=== PATIENT | male | born 1965 | race African-American/Black ===

== ENCOUNTER 2019-04-10 18:07 | Emergency (ER) | payer OTHER ==
[2019-04-10 19:01] VITALS: RESP 18
[2019-04-10] MEDS ORDERED: ACETAMINOPHEN TAB 325 MG TAB PO STA (19:13)
[2019-04-10] MEDS ORDERED: KETOROLAC 30 MG/ML 1 ML VIAL IVP STA (19:13)
[2019-04-10] MEDS: SODIUM CHLORIDE 0.9% 500 ML 500 ML IV SCH (19:27)
--- NOTE | 2019-04-10 19:31 | ED ---
General Adult HPI - General Source: patient, RN notes reviewed Mode of arrival: ambulatory Limitations: no limitations <Shailesh Hwang - Last Filed: 04/10/19 21:15> <Raciel Danielson - Last Filed: 04/10/19 21:22> - General Chief complaint: ENT Stated complaint: POSS STREP Time Seen by Provider: 04/10/19 18:56 - History of Present Illness Initial comments: 54-year-old male presents to the emergency determine for a chief Complaint of sore throat. Patient states he has had a sore throat for about 2 days. Feels like he has a lump in the back of his throat when he swallows. States it is very painful to swallow but denies difficulty swallowing. States he is had chills and felt feverish. States he was seen at [facility] prior to this and strep test was negative. However patient states he feels that he needs antibiotics.Patient has no other complaints at this time including shortness of breath, chest pain, abdominal pain, nausea or vomiting, headache, or visual changes. (Shailesh Hwang) - Related Data Previous Rx's Medication Instructions Recorded Clindamycin HCl 300 mg PO Q6HR #40 cap 12/18/15 Hydrocodone/Acetaminophen [Mcewen 1 tab PO Q6HR PRN #20 tab 12/18/15 5-325] Clindamycin [Cleocin] 450 mg PO Q8H 10 Days #90 capsule 04/10/19 Allergies Allergy/AdvReac Type Severity Reaction Status Date / Time Penicillins Allergy Swelling Verified 04/10/19 19:01 Review of Systems ROS Other: All systems not noted in ROS Statement are negative. <Shailesh Hwang - Last Filed: 04/10/19 21:15> ROS Other: All systems not noted in ROS Statement are negative. <Raciel Danielson - Last Filed: 04/10/19 21:22> ROS Statement: Those systems with pertinent positive or pertinent negative responses have been documented in the HPI. Past Medical History Past Medical History: No Reported History History of Any Multi-Drug Resistant Organisms: None Reported Past Surgical History: No Surgical Hx Reported Past Psychological History: No Psychological Hx Reported Smoking Status: Current every day smoker Past Alcohol Use History: None Reported Past Drug Use History: None Reported <Shailesh Hwang - Last Filed: 04/10/19 21:15> General Exam Limitations: no limitations General appearance: alert, in no apparent distress Head exam: Present: atraumatic, normocephalic, normal inspection Eye exam: Present: normal appearance, PERRL, EOMI. Absent: scleral icterus, conjunctival injection, periorbital swelling ENT exam: Present: mucous membranes moist, TM's normal bilaterally, normal external ear exam. Absent: normal exam, normal oropharynx (Uvula is deviated to the left, right soft palate is depressed) Neck exam: Present: normal inspection, full ROM. Absent: tenderness, meningismus, lymphadenopathy Respiratory exam: Present: normal lung sounds bilaterally. Absent: respiratory distress, wheezes, rales, rhonchi, stridor Cardiovascular Exam: Present: regular rate, normal rhythm, normal heart sounds. Absent: systolic murmur, diastolic murmur, rubs, gallop, clicks GI/Abdominal exam: Present: soft, normal bowel sounds. Absent: distended, tenderness, guarding, rebound, rigid Neurological exam: Present: alert <Shailesh Hwang P - Last Filed: 04/10/19 21:15> Course Vital Signs 04/10/19 18:59 Temperature 100.5 F H Pulse Rate 85 Respiratory 18 Rate Blood Pressure 154/96 O2 Sat by Pulse 98 Oximetry Medical Decision Making - Lab Data Result diagrams: 04/10/19 19:20 04/10/19 19:20 <Shailesh Hwang - Last Filed: 04/10/19 21:15> - Lab Data Result diagrams: 04/10/19 19:20 04/10/19 19:20 <Raciel Danielson - Last Filed: 04/10/19 21:22> - Medical Decision Making Vital decision making; this is a 54-year-old male complaint of sore throat for several days. Today the low-grade temperature. Examination of the throat finds mildly enlarged area of the right tonsil. He is able to breathe without strido r. Complains discomfort with swallowing. The tissue is not hot or red or inflamed. No anterior cervical lymphadenopathy. No headache no stiff neck. No other complaints. The patient had a CAT scan of the neck and the radiologist reported mild swelling of the right and left tonsil. No evidence of any fluid that could be aspirated. Patient has ALLERGIES to penicillin. He will be treated with clindamycin. The patient was advised to return emergency room as needed. He will be referred on to on-call ENT, Dr. Jones. Dr. Danielson (Raciel Danielson) - Lab Data Lab Results 04/10/19 04/10/19 04/10/19 Range/Units 19:20 19:20 19:20 WBC 13.0 H (3.8-10.6) k/uL RBC 4.69 (4.30-5.90) m/uL Hgb 15.3 (13.0-17.5) gm/dL Hct 43.7 (39.0-53.0) % MCV 93.1 (80.0-100.0) fL MCH 32.6 (25.0-35.0) pg MCHC 35.1 (31.0-37.0) g/dL RDW 13.2 (11.5-15.5) % Plt Count 214 (150-450) k/uL Neutrophils % 75 % Lymphocytes % 14 % Monocytes % 7 % Eosinophils % 2 % Basophils % 1 % Neutrophils # 9.7 H (1.3-7.7) k/uL Lymphocytes # 1.8 (1.0-4.8) k/uL Monocytes # 0.9 (0-1.0) k/uL Eosinophils # 0.2 (0-0.7) k/uL Basophils # 0.2 (0-0.2) k/uL Sodium 139 (137-145) mmol/L Potassium 4.9 (3.5-5.1) mmol/L Chloride 106 (98-107) mmol/L Carbon Dioxide 23 (22-30) mmol/L Anion Gap 10 mmol/L BUN 12 (9-20) mg/dL Creatinine 1.01 (0.66-1.25) mg/dL Est GFR (CKD-EPI)AfAm >90 (>60 ml/min/1.73 sqM) Est GFR (CKD-EPI)NonAf 85 (>60 ml/min/1.73 sqM) Glucose 97 (74-99) mg/dL Plasma Lactic Acid Jefe 1.8 (0.7-2.0) mmol/L Calcium 9.7 (8.4-10.2) mg/dL Total Bilirubin 0.6 (0.2-1.3) mg/dL AST 23 (17-59) U/L ALT 19 L (21-72) U/L Alkaline Phosphatase 91 (38-126) U/L Total Protein 7.6 (6.3-8.2) g/dL Albumin 4.2 (3.5-5.0) g/dL Heterophile Antibody (Negative) Group A Strep Rapid (Negative) 04/10/19 04/10/19 Range/Units 19:20 19:24 WBC (3.8-10.6) k/uL RBC (4.30-5.90) m/uL Hgb (13.0-17.5) gm/dL Hct (39.0-53.0) % MCV (80.0-100.0) fL MCH (25.0-35.0) pg MCHC (31.0-37.0) g/dL RDW (11.5-15.5) % Plt Count (150-450) k/uL Neutrophils % % Lymphocytes % % Monocytes % % Eosinophils % % Basophils % % Neutrophils # (1.3-7.7) k/uL Lymphocytes # (1.0-4.8) k/uL Monocytes # (0-1.0) k/uL Eosinophils # (0-0.7) k/uL Basophils # (0-0.2) k/uL Sodium (137-145) mmol/L Potassium (3.5-5.1) mmol/L Chloride (98-107) mmol/L Carbon Dioxide (22-30) mmol/L Anion Gap mmol/L BUN (9-20) mg/dL Creatinine (0.66-1.25) mg/dL Est GFR (CKD-EPI)AfAm (>60 ml/min/1.73 sqM) Est GFR (CKD-EPI)NonAf (>60 ml/min/1.73 sqM) Glucose (74-99) mg/dL Plasma Lactic Acid Jefe (0.7-2.0) mmol/L Calcium (8.4-10.2) mg/dL Total Bilirubin (0.2-1.3) mg/dL AST (17-59) U/L ALT (21-72) U/L Alkaline Phosphatase (38-126) U/L Total Protein (6.3-8.2) g/dL Albumin (3.5-5.0) g/dL Heterophile Antibody Negative (Negative) Group A Strep Rapid Negative (Negative) Disposition Is patient prescribed a controlled substance at d/c from ED?: No Time of Disposition: 21:15 <Shailesh Hwang - Last Filed: 04/10/19 21:15> <Raciel Danielson - Last Filed: 04/10/19 21:22> Clinical Impression: Tonsillitis, Phlegmon Disposition: HOME SELF-CARE Condition: Good Instructions (If sedation given, give patient instructions): Tonsillitis (ED) Additional Instructions: Please take Motrin and Tylenol for pain. Take antibiotic as directed. Follow- up with ENT in 1-2 days. Return to the emergency department if you have any w orsening symptoms such as are unable to swallow liquids or handle secretions. Prescriptions: Clindamycin [Cleocin] 450 mg PO Q8H 10 Days #90 capsule Referrals: Brenton Benson MD [REFERRING] - 1-2 days Dmitri Jones MD [STAFF PHYSICIAN] - 1-2 days
[2019-04-10 19:47] LABS: Basophils # (A) 0.2 k/uL (0-0.2); Basophils % (A) 1 %; Eosinophils # (A) 0.2 k/uL (0-0.7); Eosinophils % (A) 2 %; HCT 43.7 % (39.0-53.0); HGB 15.3 gm/dL (13.0-17.5); Lymphocytes # (A) 1.8 k/uL (1.0-4.8); Lymphocytes % (A) 14 %; MCH 32.6 pg (25.0-35.0); MCHC 35.1 g/dL (31.0-37.0); MCV 93.1 fL (80.0-100.0); Mean Platelet Volume 5.9; Monocytes # (A) 0.9 k/uL (0-1.0); Monocytes % (A) 7 %; Neutrophils # (A) 9.7 k/uL (1.3-7.7); Neutrophils % (A) 75 %; Platelet Count 214 k/uL (150-450); RBC 4.69 m/uL (4.30-5.90); RDW 13.2 % (11.5-15.5)
[2019-04-10 19:59] LABS: ALT 19 U/L (21-72); AST 23 U/L (17-59); African American GFR (CKD) >90 (>60 ml/min/1.73 sqM); Albumin 4.2 g/dL (3.5-5.0); Alkaline Phosphatase 91 U/L (38-126); Anion Gap 10 mmol/L; Blood Urea Nitrogen 12 mg/dL (9-20); Calcium 9.7 mg/dL (8.4-10.2); Carbon Dioxide 23 mmol/L (22-30); Chloride 106 mmol/L (98-107); Glucose 97 mg/dL (74-99); Non-African American GFR(CKD) 85 (>60 ml/min/1.73 sqM); Potassium 4.9 mmol/L (3.5-5.1); Sodium 139 mmol/L (137-145); Total Bilirubin 0.6 mg/dL (0.2-1.3); Total Protein 7.6 g/dL (6.3-8.2)
--- NOTE | 2019-04-10 20:54 | CT ---
EXAMINATION TYPE: CT soft tissue neck w con DATE OF EXAM: 04/10/2019 8:35 PM COMPARISON: HISTORY: Throat pain, difficulty swallowing x2 days. Right TERRITORY ACCOUNT REPRESENTATIVE? CT DLP: 373.8 mGycm Automated exposure control for dose reduction was used. CONTRAST: CT scan of the neck is performed following with IV Contrast, patient injected with 100 mL of Isovue 3 00. Axial images are obtained, coronal and sagittal reformatted images are reviewed. FINDINGS: There is normal branching pattern of the great vessels on the aortic arch. Thyroid gland is symmetric . There is normal contrast opacification of the carotid arteries and jugular veins. There is bilatera l contrast opacification of the vertebral arteries. Prevertebral soft tissues are within normal limit s. Cervical spine is intact. Epiglottis appears normal. The tongue appears intact. Subglottic trachea appears normal. There is bilateral enlargement of the tonsils and more on the right side. There is no discrete fluid collection. Adenoids are within normal limits. Parotid glands are symmetric. Submandibular salivary glands are symmetric. There are a few anterior t riangle cervical lymph nodes that measure less than 1 cm. There is no significant adenopathy. IMPRESSION: Significant enlargement of the tonsils more on the right side and consistent with tonsil litis. No drainable fluid collection. There is patchy hypodensity in the enlarged right tonsil that c ould relate to a phlegmon.
[2019-04-10] MEDS ORDERED: CLINDAMYCIN 150 MG CAP PO STA (21:09)
[2019-04-10 21:24] VITALS: BP 165/95; PULSE 77; TEMP 97.9
== END 2019-04-10 21:24 | disposition home or self-care (01) ==
LOC: EC 18:07
DX: J03.90 Acute tonsillitis, unspecified (principal); F17.200 Nicotine dependence, unspecified, uncomplicated; Z88.0 Allergy status to penicillin
CPT/HCPCS: 36415; 80053; 83605; 85025; 86308; 87040; 87081; 87430; 70491; 99284; 96374; 96361; J1885; Q9967